=== PATIENT | female | born 1960 ===

== ENCOUNTER 2022-06-15 11:59 | Emergency (ER) | payer OTHER, MEDICAID, SELFPAY ==
[2022-06-15 12:05] VITALS: BP 136/69; PULSE 99; RESP 15; TEMP 37.8; O2SAT 96
--- NOTE | 2022-06-15 12:08 | DI.RAD.S_ITS ---
PROCEDURE: XR CHEST 1V INDICATIONS: chest pain TECHNIQUE: One view of the chest was acquired. COMPARISON: None. FINDINGS: Surgical changes and devices: None. Lungs and pleura: Lungs are clear. No pleural effusions or pneumothorax. Mediastinum: Mediastinal contours appear normal. Heart size is normal. Bones and chest wall: No suspicious bony lesions. Overlying soft tissues appear unremarkable. IMPRESSION: No acute cardiopulmonary process demonstrated radiographically. Dictated by: Crispin Conrad M.D. on 06/15/2022 at 12:53 Approved by: Crispin Conrad M.D. on 06/15/2022 at 12:53
[2022-06-15] MEDS: ACETAMINOPHEN 325 MG TABLET 975 MG PO (12:23)
[2022-06-15 12:39] LABS: Add Manual Diff / Slide Review NO; Basophils Absolute Auto 0 /uL (0-100); Basophils Percent Auto 0.5 % (0-2); Eosinophils Absolute Auto 200 /uL (0-450); Hematocrit 36.5 % (36-46); Hemoglobin 12.4 g/dL (12.0-16.0); Lymphocytes Absolute Auto 900 /uL (1100-4500); Lymphocytes Percent Auto 10.3 % (25-40); Mean Corpuscular HGB Conc 33.9 % (30-36); Mean Corpuscular Hemoglobin 29.2 PG (26-34); Mean Corpuscular Volume 86.1 fL (80-100); Monocytes Absolute Auto 800 /uL (0-900); Monocytes Percent Auto 9.5 % (3-14); Neutrophils Absolute Auto 6500 /uL (1500-7000); Neutrophils Percent Auto 77.7 % (50-75); Platelet Count 292 X10^3/uL (150-400); Red Blood Cell Count 4.24 X10^6/uL (4.0-5.2); Red Cell Distribution Width 13.8 % (11.6-14.8); White Blood Cell Count 8.3 X10^3/uL (4.5-11.0)
[2022-06-15 12:43] LABS: INR 3.3 (0.9-1.3); Prothrombin Time 38.5 SECONDS (10.1-12.7)
[2022-06-15 12:45] LABS: PTT Partial Thromboplastin Tim 52 SECONDS (26-36)
[2022-06-15 12:49] LABS: Alanine Aminotransferase 18 IU/L (<35); Alkaline Phosphatase 136 U/L (38-126); Aspartate Aminotransferase 20 IU/L (14-36); BUN Creatinine Ratio 18.6 (6-22); Bilirubin Total 0.2 mg/dL (0.2-1.3); Blood Urea Nitrogen 13 mg/dL (7-17); Calcium 9.9 mg/dL (8.4-10.2); Carbon Dioxide 27 mmol/L (22-32); Chloride 99 mmol/L (98-107); Creatine Kinase 48 U/L (30-135); Estimated Glomerular Filt Rate > 60 mL/min (>60); Globulin 3.9 g/dL (1.7-4.1); Glucose 136 mg/dL (80-110); HEMOLYSIS < 15 (0-50); Lipase 56 U/L (23-300); Magnesium 1.7 mg/dL (1.6-2.3); Potassium 4.1 mmol/L (3.4-5.1); Sodium 138 mmol/L (137-145); Total Protein 7.9 g/dL (6.3-8.2)
[2022-06-15 12:59] LABS: Troponin I < 0.012 ng/mL (0.01-0.034)
[2022-06-15 14:07] LABS: Influenza A - CEPHEID Flu A POSITIVE (NEGATIVE); Influenza B - CEPHEID Flu B NEGATIVE (NEGATIVE)
--- NOTE | 2022-06-15 14:12 | ED.CHESTPAIN ---
HPI - Chest Pain <DAMIÁN Pa - Last Filed: 06/15/22 15:28> General Chief Complaint: Chest Pain Stated Complaint: Cough Time Seen by Provider: 06/15/22 13:43 Source: patient Mode of arrival: Ambulatory Limitations: no limitations History of Present Illness HPI narrative: This is a 61-year-old female who presents with her grandson to the emergency department with an upper respiratory illness she states that she is had for the last 4 days. Her housemate tested positive for influenza 2 days ago, she has had fever and chills earlier in the week, a persistent dry cough, has a history of diabetes and atrial fibrillation on anticoagulation. She denies any swelling to extremities, any nausea vomiting, denies any recent chills or fever but is noted to be 100.1 in triage today. She endorses pain when she takes a deep breath, pain related to her cough. She denies any history of smoking, COPD or asthma. Related Data Previous Rx's Medication Instructions Recorded benzocaine 15 mg-menthol 3.6 mg 1 clifton mucous membrane Q2-4H PRN 06/15/22 lozenges (Cepacol Sore Throat cough #16 ea (benzocaine-menthol)) benzocaine 15 mg-menthol 3.6 mg 1 clifton mucous membrane Q2-4H PRN 06/15/22 lozenges (Cepacol Sore Throat sore throat #16 ea (benzocaine-menthol)) benzonatate 100 mg capsule 100 mg PO BID PRN cough #20 caps 06/15/22 guaifenesin 600 mg tablet, 600 mg PO BID PRN cough #20 tabs 06/15/22 extended release 12 hr oseltamivir 75 mg capsule (Tamiflu) 75 mg PO BID 5 days #10 caps 06/15/22 oseltamivir 75 mg capsule (Tamiflu) 75 mg PO BID 5 days #10 caps 06/15/22 Allergies Allergy/AdvReac Type Severity Reaction Status Date / Time lisinopril Allergy Verified 06/15/22 12:05 Review of Systems <DAMIÁN Pa - Last Filed: 06/15/22 15:28> Review of Systems Narrative: Review of systems is negative for acute abnormalities unless otherwise noted in HPI Patient History <DAMIÁN Pa - Last Filed: 06/15/22 15:28> Social History Smoking Status: Unknown if ever smoked Smoking Status: Unknown if ever smoked alcohol intake frequency: holidays/special occasions only Substance Use Type: does not use Exam <DAMIÁN Pa - Last Filed: 06/15/22 15:28> Narrative Exam Narrative: Reviewed vitals signs and nursing notes. General: cooperative, comfortable, in no acute distress, well groomed HEENT: symmetrical facial expressions, moist mucous membranes Cardiovascular: regular rate and rhythm, mildly tachycardic, S1-S2 without murmur, no peripheral edema, warm extremities Respiratory: normal effort, frequent dry cough, able to speak in complete sentences, without wheezing, stridor, or abnormal breath sounds. No retractions or tachypnea. GI: abdomen soft, nontender to palpation, nondistended, without masses, rebound tenderness or exquisite tenderness with exam. MSK: moves all extremities, neurovascularly intact, no weakness, normal tone Skin: brisk capillary refill, without pallor or erythema Neuro: normal speech and cognition, A&O x3, ambulatory, clear speech Psych: mental status is grossly normal, congruent mood, normal affect, pleasant and cooperative Initial Vital Signs Initial Vital Signs: Vital Signs Temperature 100.1 F H 06/15/22 12:05 Pulse Rate 99 H 06/15/22 12:05 Respiratory Rate 15 06/15/22 12:05 Blood Pressure 136/69 06/15/22 12:05 Pulse Oximetry 96 06/15/22 12:05 Oxygen Delivery Method 06/15/22 12:05 <Alondra Shrestha DO - Last Filed: 06/19/22 08:31> Initial Vital Signs Initial Vital Signs: Vital Signs Temperature 100.1 F H 06/15/22 12:05 Pulse Rate 99 H 06/15/22 12:05 Respiratory Rate 15 06/15/22 12:05 Blood Pressure 136/69 06/15/22 12:05 Pulse Oximetry 96 06/15/22 12:05 Oxygen Delivery Method 06/15/22 12:05 Scores <DAMIÁN Pa - Last Filed: 06/15/22 15:28> PERC Score Age greater than or equal to 50 years: Yes Heart rate greater than or equal to 100 bpm: No Room Air O2 Sat less than 95%: No Unilateral leg swelling: No Recent trauma or surgery: No Hemoptysis: No Prior PE or DVT: No Hormone Use: No Total PERC Score: 1 <Alondra Shrestha DO - Last Filed: 06/19/22 08:31> PERC Score Total PERC Score: 1 Course <DAMIÁN Pa - Last Filed: 06/15/22 15:28> Orders Ordered: Discontinued Medications Acetaminophen (Acetaminophen 325 Mg Tablet) 975 mg PO NOW ONE Stop: 06/15/22 12:19 Last Admin: 06/15/22 12:23 Dose: 975 mg Documented By: FRANCISCO Benzonatate (Benzonatate 100 Mg Capsule) 100 mg PO NOW ONE Stop: 06/15/22 13:45 Last Admin: 06/15/22 14:16 Dose: 100 mg Documented By: AT Dexamethasone (Dexamethasone 10 Mg/Ml Vial) 10 mg PO NOW ONE Stop: 06/15/22 13:45 Last Admin: 06/15/22 14:17 Dose: 10 mg Documented By: AT Guaifenesin (Guaifenesin Er 600 Mg Tab) 600 mg PO NOW ONE Stop: 06/15/22 13:45 Last Admin: 06/15/22 14:16 Dose: 600 mg Documented By: AT Sodium Chloride (Normal Saline 0.9%) 1,000 mls @ 1,000 mls/hr IV BOLUS ONE Stop: 06/15/22 15:15 Last Admin: 06/15/22 15:04 Dose: Not Given Documented By: JOSEE Oseltamivir Phosphate (Oseltamivir 75 Mg Capsule) 75 mg PO NOW ONE Stop: 06/15/22 14:53 Last Admin: 06/15/22 15:04 Dose: 75 mg Documented By: JOSEE Vital Signs Vital signs: Vital Signs - 8 hr 06/15/22 12:05 06/15/22 15:09 Temperature 100.1 F H Pulse Rate 99 H 74 Respiratory Rate 15 20 Blood Pressure 136/69 120/58 L Pulse Oximetry 96 96 Oxygen Delivery Method Room Air Room Air <Alondra Shrestha DO - Last Filed: 06/19/22 08:31> Orders Ordered: Discontinued Medications Acetaminophen (Acetaminophen 325 Mg Tablet) 975 mg PO NOW ONE Stop: 06/15/22 12:19 Last Admin: 06/15/22 12:23 Dose: 975 mg Documented By: KB Benzonatate (Benzonatate 100 Mg Capsule) 100 mg PO NOW ONE Stop: 06/15/22 13:45 Last Admin: 06/15/22 14:16 Dose: 100 mg Documented By: AT Dexamethasone (Dexamethasone 10 Mg/Ml Vial) 10 mg PO NOW ONE Stop: 06/15/22 13:45 Last Admin: 06/15/22 14:17 Dose: 10 mg Documented By: AT Guaifenesin (Guaifenesin Er 600 Mg Tab) 600 mg PO NOW ONE Stop: 06/15/22 13:45 Last Admin: 06/15/22 14:16 Dose: 600 mg Documented By: AT Sodium Chloride (Normal Saline 0.9%) 1,000 mls @ 1,000 mls/hr IV BOLUS ONE Stop: 06/15/22 15:15 Last Admin: 06/15/22 15:04 Dose: Not Given Documented By: JOSEE Oseltamivir Phosphate (Oseltamivir 75 Mg Capsule) 75 mg PO NOW ONE Stop: 06/15/22 14:53 Last Admin: 06/15/22 15:04 Dose: 75 mg Documented By: JOSEE Vital Signs Vital signs: Vital Signs - 8 hr 06/15/22 12:05 06/15/22 15:09 Temperature 100.1 F H Pulse Rate 99 H 74 Respiratory Rate 15 20 Blood Pressure 136/69 120/58 L Pulse Oximetry 96 96 Oxygen Delivery Method Room Air Room Air MDM - Chest Pain <DAMIÁN Pa - Last Filed: 06/15/22 15:28> Lab Data Result diagrams: 06/15/22 12:26 06/15/22 12:26 Labs: Lab Results 06/15/22 06/15/22 06/15/22 Range/Units 12:09 12:26 12:26 WBC 8.3 (4.5-11.0) X10^3/uL RBC 4.24 (4.0-5.2) X10^6/uL Hgb 12.4 (12.0-16.0) g/dL Hct 36.5 (36-46) % MCV 86.1 (80-100) fL MCH 29.2 (26-34) PG MCHC 33.9 (30-36) % RDW 13.8 (11.6-14.8) % Plt Count 292 (150-400) X10^3/uL Neut % (Auto) 77.7 H (50-75) % Lymph % (Auto) 10.3 L (25-40) % Stearns % (Auto) 9.5 (3-14) % Eos % (Auto) 2.0 (2-4) % Baso % (Auto) 0.5 (0-2) % Neut # (Auto) 6500 (9443-3409) /uL Lymph # (Auto) 900 L (8376-1755) /uL Stearns # (Auto) 800 (0-900) /uL Eos # (Auto) 200 (0-450) /uL Baso # (Auto) 0 (0-100) /uL PT (10.1-12.7) SECONDS INR (0.9-1.3) APTT (26-36) SECONDS Sodium 138 (137-145) mmol/L Potassium 4.1 (3.4-5.1) mmol/L Chloride 99 (98-107) mmol/L Carbon Dioxide 27 (22-32) mmol/L BUN 13 (7-17) mg/dL Creatinine 0.70 (0.52-1.04) mg/dL Estimated GFR > 60 (>60) mL/min BUN/Creatinine Ratio 18.6 (6-22) Glucose 136 H (80-110) mg/dL Calcium 9.9 (8.4-10.2) mg/dL Magnesium 1.7 (1.6-2.3) mg/dL Total Bilirubin 0.2 (0.2-1.3) mg/dL AST 20 (14-36) IU/L ALT 18 (<35) IU/L Alkaline Phosphatase 136 H (38-126) U/L Total Creatine Kinase 48 (30-135) U/L CK-MB (CK-2) TNP CK-MB (CK-2) Rel Index TNP Troponin I < 0.012 (0.01-0.034) ng/mL Total Protein 7.9 (6.3-8.2) g/dL Albumin 4.0 (3.5-5.0) g/dL Globulin 3.9 (1.7-4.1) g/dL Albumin/Globulin Ratio 1.0 (1.0-2.8) Lipase 56 (23-300) U/L SARS-CoV-2 (PCR) Negative (Negative) Influenza A (RT-PCR) Flu a positive H (NEGATIVE) Influenza B (RT-PCR) Flu b negative (NEGATIVE) 06/15/22 Range/Units 12:26 WBC (4.5-11.0) X10^3/uL RBC (4.0-5.2) X10^6/uL Hgb (12.0-16.0) g/dL Hct (36-46) % MCV (80-100) fL MCH (26-34) PG MCHC (30-36) % RDW (11.6-14.8) % Plt Count (150-400) X10^3/uL Neut % (Auto) (50-75) % Lymph % (Auto) (25-40) % Stearns % (Auto) (3-14) % Eos % (Auto) (2-4) % Baso % (Auto) (0-2) % Neut # (Auto) (6056-6516) /uL Lymph # (Auto) (0523-0787) /uL Stearns # (Auto) (0-900) /uL Eos # (Auto) (0-450) /uL Baso # (Auto) (0-100) /uL PT 38.5 H (10.1-12.7) SECONDS INR 3.3 H (0.9-1.3) APTT 52 H (26-36) SECONDS Sodium (137-145) mmol/L Potassium (3.4-5.1) mmol/L Chloride (98-107) mmol/L Carbon Dioxide (22-32) mmol/L BUN (7-17) mg/dL Creatinine (0.52-1.04) mg/dL Estimated GFR (>60) mL/min BUN/Creatinine Ratio (6-22) Glucose (80-110) mg/dL Calcium (8.4-10.2) mg/dL Magnesium (1.6-2.3) mg/dL Total Bilirubin (0.2-1.3) mg/dL AST (14-36) IU/L ALT (<35) IU/L Alkaline Phosphatase (38-126) U/L Total Creatine Kinase (30-135) U/L CK-MB (CK-2) CK-MB (CK-2) Rel Index Troponin I (0.01-0.034) ng/mL Total Protein (6.3-8.2) g/dL Albumin (3.5-5.0) g/dL Globulin (1.7-4.1) g/dL Albumin/Globulin Ratio (1.0-2.8) Lipase (23-300) U/L SARS-CoV-2 (PCR) (Negative) Influenza A (RT-PCR) (NEGATIVE) Influenza B (RT-PCR) (NEGATIVE) Imaging Data Chest x-ray: Radiologist's Impression: PROCEDURE:? XR CHEST 1V ? INDICATIONS:? chest pain ? TECHNIQUE:? One view of the chest was acquired.? ? COMPARISON:? None. ? FINDINGS:? ? Surgical changes and devices:? None.? ? Lungs and pleura:? Lungs are clear.? No pleural effusions or pneumothorax.? ? Mediastinum:? Mediastinal contours appear normal.? Heart size is normal.? ? Bones and chest wall:? No suspicious bony lesions.? Overlying soft tissues appear unremarkable.? ? IMPRESSION:? No acute cardiopulmonary process demonstrated radiographically. ? ? Dictated by: Crispin Conrad M.D. on 06/15/2022 at 12:53 ? ? Approved by: Crispin Conrad M.D. on 06/15/2022 at 12:53 ? ECG Data Interpretation: EKG independently reviewed by Dr Shrestha [id number] reveals normal sinus rhythm at 94 bpm with regular axis and intervals. No STEMI, ST segment changes, arrhythmia, or acute ischemic changes. MDM Narrative Medical decision making narrative: This is a 61-year-old female presents emergency department for cough and fever symptoms over the last 3 days, she has a history of diabetes, atrial fibrillation, is chronically anticoagulated on warfarin, denies nausea vomiting, or diarrhea. Her housemate tested positive for influenza a 2 days ago, her PCR is positive today for influenza A. She has a frequent cough, mild fever in triage, without tachypnea, hypoxia, increased work of breathing, abnormal vital signs otherwise. Her chest x-ray is negative for acute cardiopulmonary abnormality. Overall, her lab work is reassuring, no leukocytosis, anemia, INR is 3.3, she is anticoagulated on warfarin. She has a negative troponin, normal liver enzymes. Encouraged hydration, prescribed Tamiflu, guaifenesin, Tessalon Perles and throat lozenges as needed. Encouraged her to follow-up with her primary care provider after 5 days of treatment to see if she is well or the prescription needs prolonged. She understands strict return precautions. Patient is appropriate and amenable to discharge home. Vital signs are stable on repeat examination is unremarkable. Patient has been informed of results. Patient has been given strict return to ER precautions for any new or worsening symptoms. Patient understands to follow up closely with outpatient providers as instructed. Patient understands plan and agrees to discharge home. All questions and concerns answered at this time. <Alondra Shrestha, DO - Last Filed: 06/19/22 08:31> Lab Data Labs: Lab Results 06/15/22 06/15/22 06/15/22 Range/Units 12:09 12:26 12:26 WBC 8.3 (4.5-11.0) X10^3/uL RBC 4.24 (4.0-5.2) X10^6/uL Hgb 12.4 (12.0-16.0) g/dL Hct 36.5 (36-46) % MCV 86.1 (80-100) fL MCH 29.2 (26-34) PG MCHC 33.9 (30-36) % RDW 13.8 (11.6-14.8) % Plt Count 292 (150-400) X10^3/uL Neut % (Auto) 77.7 H (50-75) % Lymph % (Auto) 10.3 L (25-40) % Stearns % (Auto) 9.5 (3-14) % Eos % (Auto) 2.0 (2-4) % Baso % (Auto) 0.5 (0-2) % Neut # (Auto) 6500 (6482-1723) /uL Lymph # (Auto) 900 L (2244-3520) /uL Stearns # (Auto) 800 (0-900) /uL Eos # (Auto) 200 (0-450) /uL Baso # (Auto) 0 (0-100) /uL PT (10.1-12.7) SECONDS INR (0.9-1.3) APTT (26-36) SECONDS Sodium 138 (137-145) mmol/L Potassium 4.1 (3.4-5.1) mmol/L Chloride 99 (98-107) mmol/L Carbon Dioxide 27 (22-32) mmol/L BUN 13 (7-17) mg/dL Creatinine 0.70 (0.52-1.04) mg/dL Estimated GFR > 60 (>60) mL/min BUN/Creatinine Ratio 18.6 (6-22) Glucose 136 H (80-110) mg/dL Calcium 9.9 (8.4-10.2) mg/dL Magnesium 1.7 (1.6-2.3) mg/dL Total Bilirubin 0.2 (0.2-1.3) mg/dL AST 20 (14-36) IU/L ALT 18 (<35) IU/L Alkaline Phosphatase 136 H (38-126) U/L Total Creatine Kinase 48 (30-135) U/L CK-MB (CK-2) TNP CK-MB (CK-2) Rel Index TNP Troponin I < 0.012 (0.01-0.034) ng/mL Total Protein 7.9 (6.3-8.2) g/dL Albumin 4.0 (3.5-5.0) g/dL Globulin 3.9 (1.7-4.1) g/dL Albumin/Globulin Ratio 1.0 (1.0-2.8) Lipase 56 (23-300) U/L SARS-CoV-2 (PCR) Negative (Negative) Influenza A (RT-PCR) Flu a positive H (NEGATIVE) Influenza B (RT-PCR) Flu b negative (NEGATIVE) 06/15/22 Range/Units 12:26 WBC (4.5-11.0) X10^3/uL RBC (4.0-5.2) X10^6/uL Hgb (12.0-16.0) g/dL Hct (36-46) % MCV (80-100) fL MCH (26-34) PG MCHC (30-36) % RDW (11.6-14.8) % Plt Count (150-400) X10^3/uL Neut % (Auto) (50-75) % Lymph % (Auto) (25-40) % Stearns % (Auto) (3-14) % Eos % (Auto) (2-4) % Baso % (Auto) (0-2) % Neut # (Auto) (3559-9187) /uL Lymph # (Auto) (0500-5744) /uL Stearns # (Auto) (0-900) /uL Eos # (Auto) (0-450) /uL Baso # (Auto) (0-100) /uL PT 38.5 H (10.1-12.7) SECONDS INR 3.3 H (0.9-1.3) APTT 52 H (26-36) SECONDS Sodium (137-145) mmol/L Potassium (3.4-5.1) mmol/L Chloride (98-107) mmol/L Carbon Dioxide (22-32) mmol/L BUN (7-17) mg/dL Creatinine (0.52-1.04) mg/dL Estimated GFR (>60) mL/min BUN/Creatinine Ratio (6-22) Glucose (80-110) mg/dL Calcium (8.4-10.2) mg/dL Magnesium (1.6-2.3) mg/dL Total Bilirubin (0.2-1.3) mg/dL AST (14-36) IU/L ALT (<35) IU/L Alkaline Phosphatase (38-126) U/L Total Creatine Kinase (30-135) U/L CK-MB (CK-2) CK-MB (CK-2) Rel Index Troponin I (0.01-0.034) ng/mL Total Protein (6.3-8.2) g/dL Albumin (3.5-5.0) g/dL Globulin (1.7-4.1) g/dL Albumin/Globulin Ratio (1.0-2.8) Lipase (23-300) U/L SARS-CoV-2 (PCR) (Negative) Influenza A (RT-PCR) (NEGATIVE) Influenza B (RT-PCR) (NEGATIVE) ECG Data Interpretation: EKG independently reviewed by Dr Shrestha [id number] reveals normal sinus rhythm at 94 bpm with regular axis and intervals. No STEMI, ST segment changes, arrhythmia, or acute ischemic changes. Normal sinus rhythm rate of 94, P are 134 QRS 80 QTC 410. No acute ST elevation appreciated does appear to have some baseline artifact. Discharge Plan Departure Patient Disposition: Home Clinical Impression: Influenza A, Cough, Chronic anticoagulation, History of diabetes mellitus Instructions: DI for Influenza -- Adult Activity Restrictions/Additional Instructions: *You have been diagnosed with influenza a, please take this medication twice a day for the next Please follow-up with your regular doctor if you are not well after 5 days. Please use Mucinex for productive cough, Tessalon Perles as needed for frequent cough, Tylenol every 6 hours for fever, stay hydrated as a priority please. You can use Zyrtec for nasal congestion. I hope you feel better soon. *What to do: *Please continue to take your regular medications as directed. [x ] xNew medication prescriptions sent to your pharmacy: [ [facility]] [ ] New medication written as a paper prescription [ ] No new medications given *Please follow up with your primary care provider in 2-3 days, call for an appointment. Let them know you were seen in the Emergency Department and that we asked that you be seen for follow-up. We will electronically transmit a record of today's note if your PCP is in our system *If you do not have a primary care provider please contact [phone] to establish care with one of the [facility] primary care providers. *Return to Emergency Department if you should have any new, worsening, or concerning symptoms, such as [fever greater than 101F, chills, worsening pain, persistent vomiting or other bothersome symptoms]. Prescriptions: New oseltamivir [Tamiflu] 75 mg capsule 75 mg PO BID 5 Days Qty: 10 0RF Cepacol Sore Throat (scott-men) 15-3.6 mg lozenge 1 clifton mucous membrane Q2-4H PRN (Reason: cough) Qty: 16 0RF Cepacol Sore Throat (scott-men) 15-3.6 mg lozenge 1 clifton mucous membrane Q2-4H PRN (Reason: sore throat) Qty: 16 0RF guaifenesin 600 mg tablet extended release 12hr 600 mg PO BID PRN (Reason: cough) Qty: 20 0RF oseltamivir [Tamiflu] 75 mg capsule 75 mg PO BID 5 Days Qty: 10 0RF benzonatate 100 mg capsule 100 mg PO BID PRN (Reason: cough) Qty: 20 0RF Visit Report Forms: Patient Portal/API <Alondra Shrestha DO - Last Filed: 06/19/22 08:31> [facility] Jamesature Attestation: I was immediately available in the department for consultation. Documentation has been reviewed.
[2022-06-15] MEDS: guaiFENesin ER 600 MG TAB PO (14:16)
[2022-06-15] MEDS: BENZONATATE 100 MG CAPSULE PO (14:16)
[2022-06-15] MEDS: DEXAMETHASONE 10 MG/ML VIAL PO (14:17)
[2022-06-15 14:22] LABS: COVID-19 CEPHEID 4-PLEX PCR Negative (Negative)
[2022-06-15] MEDS: OSELTAMIVIR 75 MG CAPSULE PO (15:04)
[2022-06-15 15:09] VITALS: BP 120/58; PULSE 74; RESP 20; O2SAT 96
== END 2022-06-15 15:30 | disposition home or self-care (01) ==
PROVIDERS: Emergency Medicine; Emergency Provider Nurse Practitioner Critical Care Medicine
DX: J10.1 Influenza due to other identified influenza virus with other respiratory manifestations (principal); R05.9 Cough, unspecified; R07.9 Chest pain, unspecified; E11.9 Type 2 diabetes mellitus without complications; Z79.01 Long term (current) use of anticoagulants; Z20.822 Contact with and (suspected) exposure to COVID-19
CPT/HCPCS: 36415; 71045; 80053; 82550; 83690; 83735; 84484; 85025; 85610; 85730; 87635; 93005; 93010; 99284; C9803; J1100